=== PATIENT | male | born 1975 | race Caucasian/White ===

== ENCOUNTER 2022-03-27 13:29 | Outpatient (CLI) | payer BC, SELFPAY ==
--- NOTE | 2022-03-27 13:45 | CRLHL7_ITS ---
For Patients: As a result of the Century Cures Act, medical imaging exams and procedure reports are released immediately into your electronic medical record. You may view this report before your referring provider. If you have questions, please contact your health care provider. Indication: Lumbar spine pain. Technique: T2, T1, and STIR sagittal as well as T1 and T2 axial sequences were obtained. No IV contrast. Comparison: None available. Findings: There are 5 lumbar type vertebral segments identified. The vertebral body heights are maintained without evidence of fracture. No discrete T1 hypointense marrow infiltrating process. The conus medullaris terminates at T12-L1, normal. Cauda equina appears unremarkable. T12-L1: No spinal canal or neural foraminal stenosis. L1-2: No spinal canal or neural foraminal stenosis. L2-3: No spinal canal or neural foraminal stenosis. L3-4: No spinal canal or neural foraminal stenosis. L4-5: Mild disc height loss and desiccation. Small central and right subarticular disc protrusion slightly abutting the descending right L5 nerve without overt compression. No neural foraminal narrowing. Mild facet arthropathy. L5-S1: Mild disc height loss and desiccation. Minimal disc bulge without spinal canal or neural foraminal narrowing. Mild facet arthropathy. The sacroiliac joints appear patent. Impression: 1. At L4-5, small central and right subarticular disc protrusion slightly abutting the descending right L5 nerve. 2. Mild multilevel facet arthropathy. Dictated by Miguel Tom MD @ 03/27/2022 4:50:45 PM (Electronically Signed)
== END 2022-03-27 13:30 | disposition home or self-care (01) ==
PROVIDERS: PCP Internal Medicine; Visit Provider Orthopaedic Surgery Orthopaedic Surgery of the Spine
DX: M54.50 Low back pain, unspecified (principal); M51.26 Other intervertebral disc displacement, lumbar region
CPT/HCPCS: 72148

== ENCOUNTER 2022-03-30 09:47 | Outpatient (RCR) | payer BC, SELFPAY | END 2022-07-07 14:30 | disposition home or self-care (01) | PROVIDERS: PCP Internal Medicine; Visit Provider Orthopaedic Surgery Orthopaedic Surgery of the Spine | DX: M54.50 Low back pain, unspecified (principal); Z51.89 Encounter for other specified aftercare | CPT/HCPCS: 97110; 97162 ==

== ENCOUNTER 2022-07-04 09:14 | Outpatient (CLI) | payer BC, SELFPAY | END 2022-07-04 09:15 | disposition home or self-care (01) | PROVIDERS: PCP Internal Medicine; Visit Provider Family Medicine | DX: M51.26 Other intervertebral disc displacement, lumbar region (principal); M54.16 Radiculopathy, lumbar region | CPT/HCPCS: 62323; J0702; Q9966 ==